=== PATIENT | male | born 1965 | race Caucasian/White ===

== ENCOUNTER 2020-09-01 19:55 | Observation (INO) | payer BC ==
[~2020-09-01] VITALS: Ht 177.8 cm; Wt 102.9 kg
--- NOTE | 2020-09-01 20:06 | NUR ---
BIB EMS FROM [facility]. PT CRUSHED LEFT THUMB WITH AMPUTATION ON WOOD SPLITTER. 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 LEFT THUMB DRESSED IN [place]. PT AMBULATED TO RESTROOM WITH STEADY GAIT. PT CONNECTED TO MONITORING. PT STATES PAIN IS 2-3. PT HAS NOT RECEIVED ANY MEDS GEM STONE CUTTER.
--- NOTE | 2020-09-01 21:03 | NUR ---
ALL RESULTS ARE BACK AT THIS TIME. CHART UP FOR RECHECK.
--- NOTE | 2020-09-01 21:08 | NUR ---
REPORT FROM [facility] RONPROFESSOR OF [facility]ESI[facility] OF CARE AT THIS TIME
[2020-09-01] MEDS ORDERED: CEFAZOLIN PMX 1GM/50ML 50 ML IV ONE (21:30)
[2020-09-01] MEDS ORDERED: CEFAZOLIN PMX 1GM/50ML 50 ML ONE (21:43)
[2020-09-01] MEDS ORDERED: HYDROmorphone 1 MG/ML, 1ML INJ IVPush PRN (22:00)
[2020-09-01] MEDS ORDERED: FENTANYL PF 100 MCG/2ML IV PRN (22:00)
[2020-09-01] MEDS ORDERED: LABETALOL 5MG/ML, 20ML IV PRN (22:00)
[2020-09-01] MEDS ORDERED: ONDANSETRON 2MG/ML, 2ML IVPush PRN (22:00)
[2020-09-01] MEDS ORDERED: MEPERIDINE/PF 25MG/0.5ML IVPush PRN (22:00)
[2020-09-01] MEDS ORDERED: hydrALAzine 20 MG/ML, 1ML IV PRN (22:00)
[2020-09-01] MEDS ORDERED: PROMETHAZINE 25 MG/ML, 1ML IVPush PRN (22:00)
[2020-09-01] MEDS ORDERED: OXYcodone 5 MG/5 ML ORAL.SOL UDC PO PRN (22:00)
--- NOTE | 2020-09-01 22:39 | NUR ---
REPORT TO [facility] WILL COME GET PT SOON
[2020-09-01] MEDS ORDERED: FENTANYL PF 250 MCG/5ML ONE (22:40)
[2020-09-01] MEDS ORDERED: PROPOFOL 10 MG/ML, 20ML ONE (22:50)
[2020-09-01] MEDS ORDERED: DEXAMETHASONE 4 MG/ML, 5ML ONE (22:50)
[2020-09-01] MEDS ORDERED: ONDANSETRON 2MG/ML, 2ML ONE (22:50)
[2020-09-01] MEDS ORDERED: SUCCINYLCHOLINE 20 MG/ML, 10ML ONE (22:50)
[2020-09-01] MEDS ORDERED: BUPIVACAINE/PF 0.5% ONE (22:53)
[2020-09-01] MEDS ORDERED: ROCURONIUM 10 MG/ML,10ML ONE (23:00)
[2020-09-01] MEDS ORDERED: EPHEDRINE 50 MG/ML, 1ML ONE (23:17)
[2020-09-01] MEDS ORDERED: OXYcodone 5 MG/5 ML ORAL.SOL UDC ONE (23:17)
[2020-09-01] MEDS ORDERED: FENTANYL PF 100 MCG/2ML ONE (23:17)
[2020-09-01] MEDS ORDERED: BUPIVACAINE/PF 0.5% INFIL ONE (23:29)
[2020-09-02] MEDS ORDERED: ALBUTEROL HFA 90 MCG/SPRAY ONE (00:26)
[2020-09-02] MEDS ORDERED: ALBUTEROL HFA 90 MCG/SPRAY INH PRN (00:30)
[2020-09-02] MEDS ORDERED: morphine SULFATE 10 MG/ML, 1ML IVPush PRN (01:00)
[2020-09-02] MEDS ORDERED: ONDANSETRON 2MG/ML, 2ML IVPush PRN (01:00)
[2020-09-02] MEDS ORDERED: ACETAMINOPHEN 325 MG TABLET PO PRN (01:00)
[2020-09-02] MEDS ORDERED: hydrALAzine 20 MG/ML, 1ML IVPush PRN (01:00)
[2020-09-02] MEDS ORDERED: MELATONIN 5 MG TABLET PO PRN (01:00)
[2020-09-02] MEDS ORDERED: HYDROcodone/APAP 5/325 TABLET PO PRN (01:00)
[2020-09-02 01:12] VITALS: BP 128/77
[2020-09-02 02:13] LABS: BASOPHILS % (AUTO) 0 % (0-1); EOSINOPHILS % (AUTO) 0 % (1-7); LYMPHOCYTES % (AUTO) 9 % (22-44); MEAN CORPUSCULAR HEMOGLOBIN 32.5 pg (27.5-34.5); MEAN CORPUSCULAR HGB CONC 33.8 g/dL (33.2-36.2); MEAN PLATELET VOLUME 8.2 fL (7.4-10.4); MONOCYTES % (AUTO) 2 % (2-9); NEUTROPHILS % (AUTO) 88 % (42-75); PLATELET COUNT 258 x10^3/uL (130-400); RED BLOOD COUNT 4.62 x10^6/uL (4.38-5.82); RED CELL DISTRIBUTION WIDTH 13.2 % (9.4-14.8)
[2020-09-02 02:16] LABS: ANION GAP 5 mmol/L (5-15); CALCIUM 8.1 mg/dL (8.5-10.1); CHLORIDE 109 mmol/L (98-107); CREATININE 0.76 mg/dL (0.7-1.3)
[2020-09-02 02:20] LABS: MD NO
[2020-09-02 04:21] VITALS: BP 125/79
[2020-09-02] MEDS: CEFAZOLIN PMX 2GM/50ML 50 ML IVPB SCH ×2 (06:20→14:23)
[2020-09-02 07:53] VITALS: BP 124/76
[2020-09-02] MEDS ORDERED: SENNA/DOCUSATE TABLET PO SCH (09:00)
[2020-09-02] MEDS ORDERED: AMOX1TAB64 PO (11:23)
[2020-09-02 13:36] VITALS: BP 116/69
[2020-09-02 15:27] VITALS: BP 118/64
== END 2020-09-02 16:35 | disposition home or self-care (01) ==
LOC: ED 20:54 → EDIP 22:09 → INTOOBSV 22:09 → 4NE 09-02 00:46 → DCLOUNGE 09-02 16:27
PROVIDERS: ADMIT Family Medicine; ATTEND Hospitalist
DX: S68.022A Partial traumatic metacarpophalangeal amputation of left thumb, initial encounter (principal); Z20.822 Contact with and (suspected) exposure to COVID-19; S67.02XA Crushing injury of left thumb, initial encounter; G89.11 Acute pain due to trauma; E11.9 Type 2 diabetes mellitus without complications; E78.5 Hyperlipidemia, unspecified; E66.9 Obesity, unspecified; F17.210 Nicotine dependence, cigarettes, uncomplicated; W23.0XXA Caught, crushed, jammed, or pinched between moving objects, initial encounter; Y93.89 Activity, other specified; Y92.89 Other specified places as the place of occurrence of the external cause
CPT/HCPCS: 26952; 36415; 73140; 80048; 83036; 85025; 87635; 96365; 96366; 99284; G0378; J0330; J0690; J1100; J2405; J2704; J3010; S0020